=== PATIENT | male | born 1940 | race Asian ===

== ENCOUNTER 2017-08-20 12:10 | Emergency (ER) | payer MEDICARE, OTHER ==
[2017-08-20] MEDS: predniSONE 20 MG TAB PO (12:59)
[2017-08-20] MEDS: ALBUTEROL 0.083% (NEB) 2.5 MG/3 ML AMP NEB (13:05)
[2017-08-20] MEDS: IPRATROPIUM (NEB) 0.5 MG/2.5 ML AMP NEB (13:05)
== END 2017-08-20 14:51 | disposition home or self-care (01) ==
LOC: FTE 12:10
DX: R05 Cough (principal); J45.909 Unspecified asthma, uncomplicated
CPT/HCPCS: 71045; 94664; 99284-25

== ENCOUNTER 2017-09-05 08:17 | Emergency (ER) | payer MEDICARE, OTHER ==
[2017-09-05] MEDS: METHYLPREDNISOLONE 125 MG INJ IM (09:25)
== END 2017-09-05 10:07 | disposition home or self-care (01) ==
LOC: FTE 08:17
DX: J20.9 Acute bronchitis, unspecified (principal); J45.901 Unspecified asthma with (acute) exacerbation; Z76.0 Encounter for issue of repeat prescription; Z87.891 Personal history of nicotine dependence
CPT/HCPCS: 71046; 96372; 99284-25

== ENCOUNTER 2017-09-23 10:48 | Inpatient (IN) | payer MEDICARE, OTHER ==
[2017-09-23] MEDS: HYDROCODONE/APAP (10/325) TAB PO (11:21)
[2017-09-23] MEDS: ASPIRIN 325 MG TAB PO (11:21)
[2017-09-23 11:36] LABS: ADD MAN DIFF? NO
[2017-09-23 11:39] LABS: BASOPHIL # 0.1 10^3/ul (0.0-0.1); BASOPHILS % 0.9 % (0.0-2.0); EOSINOPHILS # 0.5 10^3/ul (0.0-0.5); EOSINOPHILS % 4.3 % (0.0-7.0); HEMATOCRIT 43.2 % (42.0-52.0); HEMOGLOBIN 14.2 g/dl (14.0-18.0); LYMPHOCYTES # 0.8 10^3/ul (0.8-2.9); LYMPHOCYTES % 7.7 % (15.0-51.0); MEAN CORPUSCULAR HEMOGLOBIN 30.9 pg (29.0-33.0); MEAN CORPUSCULAR HGB CONC 32.9 g/dl (32.0-37.0); MEAN CORPUSCULAR VOLUME 94.1 fl (82.0-101.0); MEAN PLATELET VOLUME 10.8 fl (7.4-10.4); MONOCYTE # 0.4 10^3/ul (0.3-0.9); MONOCYTES % 3.6 % (0.0-11.0); NEUTROPHIL # 8.8 10^3/ul (1.6-7.5); NEUTROPHILS % 83.2 % (39.0-77.0); PLATELET COUNT 154 10^3/UL (140-415); RED BLOOD COUNT 4.59 10^6/ul (4.70-6.10); RED CELL DISTRIBUTION WIDTH 13.2 % (11.5-14.5)
[2017-09-23 11:39] LABS: WHITE BLOOD COUNT 10.5 10^3/ul (4.8-10.8)
[2017-09-23 11:55] LABS: ALANINE AMINOTRANSFERASE 30 IU/L (13-69); ALBUMIN 4.4 g/dl (3.3-4.9); ALBUMIN/GLOBULIN RATIO 1.51; ALKALINE PHOSPHATASE 79 IU/L (42-121); ANION GAP 18 (8-16); ASPARTATE AMINO TRANSFERASE 16 IU/L (15-46); BILIRUBIN,INDIRECT 0.3 mg/dl (0-1.1); BILIRUBIN,TOTAL 0.3 mg/dl (0.2-1.3); BLOOD UREA NITROGEN 18 mg/dl (7-20); CALCIUM 9.4 mg/dl (8.4-10.2); CARBON DIOXIDE 24 mmol/L (21-31); CHLORIDE 107 mmol/L (97-110); CREATININE 0.98 mg/dl (0.61-1.24); GLUCOSE 148 mg/dl (70-220); POTASSIUM 4.6 mmol/L (3.5-5.1); SODIUM 144 mmol/L (135-144); TOTAL PROTEIN 7.3 g/dl (6.1-8.1)
[2017-09-23 11:59] LABS: PARTIAL THROMBOPLASTIN TIME 29.1 Sec (25.0-35.0); PROTIME 14.4 Sec (11.9-14.9); PT RATIO 1.1
[2017-09-23 12:12] LABS: TROPONIN-I < 0.012 ng/ml (0.000-0.120)
[2017-09-23] MEDS: DILTIAZEM 25 MG INJ IV (13:29)
[2017-09-23] MEDS ORDERED: ACETAMINOPHEN 325 MG TAB PO ×2 (14:00→18:30)
[2017-09-23] MEDS ORDERED: ONDANSETRON 4 MG INJ IV ×2 (14:00→18:30)
[2017-09-23] MEDS: DILTIAZEM-D5W 125MG/125ML DRIP 125 ML IV (14:28)
[2017-09-23] MEDS ORDERED: MAGNESIUM HYDROXIDE 30ML CUP PO (18:30)
[2017-09-23] MEDS ORDERED: HYDROCODONE/APAP (5/325) TAB PO (18:30)
[2017-09-23] MEDS ORDERED: NACL 0.9% 3 ML SYG IV (18:30)
[2017-09-23] MEDS ORDERED: DOCUSATE SODIUM 100 MG CAP PO (18:30)
[2017-09-23] MEDS ORDERED: morphine 2 MG INJ IV (18:30)
[2017-09-23] MEDS ORDERED: ZOLPIDEM 5 MG TAB PO (18:30)
[2017-09-23] MEDS: MAGNESIUM SULFATE 2 GM/50 ML 50 ML IVPB (19:36)
[2017-09-23] MEDS: METOPROLOL 25 MG TAB PO (20:46)
[2017-09-23 20:50] LABS: MAGNESIUM 1.8 mg/dl (1.7-2.5)
[2017-09-24 06:00] LABS: ADD MAN DIFF? NO
[2017-09-24 06:07] LABS: BASOPHIL # 0.1 10^3/ul (0.0-0.1); BASOPHILS % 0.9 % (0.0-2.0); EOSINOPHILS % 11.3 % (0.0-7.0); HEMATOCRIT 39.6 % (42.0-52.0); HEMOGLOBIN 13.2 g/dl (14.0-18.0); LYMPHOCYTES # 2.1 10^3/ul (0.8-2.9); LYMPHOCYTES % 24.5 % (15.0-51.0); MEAN CORPUSCULAR HEMOGLOBIN 31.4 pg (29.0-33.0); MEAN CORPUSCULAR HGB CONC 33.3 g/dl (32.0-37.0); MEAN CORPUSCULAR VOLUME 94.1 fl (82.0-101.0); MEAN PLATELET VOLUME 11.1 fl (7.4-10.4); MONOCYTE # 0.8 10^3/ul (0.3-0.9); MONOCYTES % 8.6 % (0.0-11.0); NEUTROPHIL # 4.8 10^3/ul (1.6-7.5); NEUTROPHILS % 54.2 % (39.0-77.0); PLATELET COUNT 132 10^3/UL (140-415); POSITIVE DIFF @See below; RED BLOOD COUNT 4.21 10^6/ul (4.70-6.10); RED CELL DISTRIBUTION WIDTH 13.1 % (11.5-14.5)
[2017-09-24 06:07] LABS: WHITE BLOOD COUNT 8.8 10^3/ul (4.8-10.8)
[2017-09-24 06:22] LABS: HEMOGLOBIN A1C 5.6 % (0-5.9)
[2017-09-24 06:35] LABS: ANION GAP 14 (8-16); BLOOD UREA NITROGEN 16 mg/dl (7-20); CALCIUM 9.1 mg/dl (8.4-10.2); CARBON DIOXIDE 27 mmol/L (21-31); CHLORIDE 105 mmol/L (97-110); CHOLESTEROL 163 mg/dl (100-200); CREATININE 0.89 mg/dl (0.61-1.24); GLUCOSE 105 mg/dl (70-220); HDL CHOLESTEROL 53 mg/dl (31-75); LDL CHOLESTEROL,CALCULATED 95 mg/dl; POTASSIUM 4.2 mmol/L (3.5-5.1); SODIUM 142 mmol/L (135-144); TRIGLYCERIDES 75 mg/dl (0-149)
[2017-09-24 06:41] LABS: TROPONIN-I < 0.012 ng/ml (0.000-0.120)
[2017-09-24 06:44] LABS: FREE THYROXINE INDEX (Calc) 1.92 ug/ml (0.65-3.89); T3 UPTAKE 45.7 % (23.5-40.5); T4 (THYROXINE) 4.2 ug/dl (5.5-11.0)
[2017-09-24] MEDS: ASPIRIN (EC) 325 MG TAB PO (08:21)
[2017-09-24] MEDS: METOPROLOL 25 MG TAB PO ×2 (08:22→21:02)
[2017-09-24] MEDS: ENOXAPARIN 40 MG/0.4 ML SYG SC (08:25)
[2017-09-24] MEDS ORDERED: morphine LIQ (10 MG/5 ML) CUP PO (16:59)
[2017-09-24] MEDS: APIXABAN 5 MG TABLET PO (21:03)
[2017-09-25 07:59] LABS: TROPONIN-I < 0.012 ng/ml (0.000-0.120)
[2017-09-25] MEDS: APIXABAN 5 MG TABLET PO (08:37)
[2017-09-25] MEDS: METOPROLOL 25 MG TAB PO (08:38)
[2017-09-25] MEDS: ASPIRIN (EC) 81 MG TAB PO (08:58)
[2017-09-25] MEDS ORDERED: ASPIRIN (EC) 325 MG TAB PO (09:00)
[2017-09-25] MEDS: DIGOXIN 500 MCG INJ IV (14:35)
[2017-09-25] MEDS ORDERED: METOPROLOL 25 MG TAB PO (21:00)
== END 2017-09-25 16:27 | disposition home or self-care (01) | DRG 310 ==
LOC: FTE 10:48 → TEL 13:50
PROVIDERS: Internal Medicine
DX: I48.91 Unspecified atrial fibrillation (principal); I10 Essential (primary) hypertension; D64.9 Anemia, unspecified; M54.2 Cervicalgia; I42.9 Cardiomyopathy, unspecified; Z79.02 Long term (current) use of antithrombotics/antiplatelets; Z87.891 Personal history of nicotine dependence
CPT/HCPCS: 36415; 71046; 72040; 80048; 80053; 80061; 83036; 83735; 84436; 84443; 84479; 84484; 85025; 85610; 85730; 93005; 93306; 96374; 96375; 99291-25

== ENCOUNTER 2018-06-23 09:46 | Emergency (ER) | payer MEDICARE, OTHER ==
[2018-06-23] MEDS: DEXAMETHASONE 10 MG/ML 1 ML INJ IM (11:41)
[2018-06-23] MEDS: ALBUTEROL 0.083% (NEB) 2.5 MG/3 ML AMP HHN (12:05)
== END 2018-06-23 12:24 | disposition home or self-care (01) ==
LOC: FTE 09:46
DX: J45.901 Unspecified asthma with (acute) exacerbation (principal); Z87.891 Personal history of nicotine dependence
CPT/HCPCS: 94664; 96372; 99284-25

== ENCOUNTER 2018-09-14 08:42 | Emergency (ER) | payer MEDICARE, OTHER ==
[2018-09-14] MEDS: DEXAMETHASONE 10 MG/ML 1 ML INJ IM (09:08)
[2018-09-14] MEDS: ALBUTEROL 0.083% (NEB) 2.5 MG/3 ML AMP NEB (09:10)
== END 2018-09-14 10:10 | disposition home or self-care (01) ==
LOC: FTE 08:42
DX: J45.21 Mild intermittent asthma with (acute) exacerbation (principal); Z76.0 Encounter for issue of repeat prescription; Z87.891 Personal history of nicotine dependence
CPT/HCPCS: 71045; 94664; 96372; 99284-25

== ENCOUNTER → 2018-10-05 | Emergency (ER) | payer MEDICARE, OTHER ==
[2018-10-05] MEDS: DEXAMETHASONE 10 MG/ML 1 ML INJ IM (11:29)
[2018-10-05] MEDS: ALBUTEROL 0.083% (NEB) 2.5 MG/3 ML AMP HHN (11:51)
[2018-10-05] MEDS: IPRATROPIUM (NEB) 0.5 MG/2.5 ML AMP HHN (11:51)
== END | disposition home or self-care (01) ==
LOC: FTE 10:19
DX: J45.901 Unspecified asthma with (acute) exacerbation (principal); Z87.891 Personal history of nicotine dependence; Z79.01 Long term (current) use of anticoagulants
CPT/HCPCS: 94644; 96372; 99284-25

== ENCOUNTER 2018-11-19 11:23 | Emergency (ER) | payer MEDICARE, OTHER ==
[2018-11-19] MEDS: METHYLPREDNISOLONE 125 MG INJ IV (13:56)
[2018-11-19] MEDS: ALBUTEROL 0.083% (NEB) 2.5 MG/3 ML AMP NEB (14:17)
[2018-11-19] MEDS: IPRATROPIUM (NEB) 0.5 MG/2.5 ML AMP NEB (14:17)
== END 2018-11-19 15:26 | disposition home or self-care (01) ==
LOC: FTE 15:26
DX: J45.901 Unspecified asthma with (acute) exacerbation (principal); Z87.891 Personal history of nicotine dependence
CPT/HCPCS: 71045; 94644; 96374; 99284-25

== ENCOUNTER 2018-12-25 08:54 | Emergency (ER) | payer MEDICARE, OTHER ==
[2018-12-25] MEDS: METHYLPREDNISOLONE 125 MG INJ IM (09:59)
[2018-12-25] MEDS: IPRATROPIUM (NEB) 0.5 MG/2.5 ML AMP HHN (10:01)
[2018-12-25] MEDS: ALBUTEROL 0.083% (NEB) 2.5 MG/3 ML AMP HHN (10:02)
== END 2018-12-25 11:25 | disposition home or self-care (01) ==
LOC: FTE 08:54
DX: J45.901 Unspecified asthma with (acute) exacerbation (principal); Z79.01 Long term (current) use of anticoagulants; Z87.891 Personal history of nicotine dependence
CPT/HCPCS: 93005; 94664; 96372; 99284-25